=== PATIENT | male | born 1990 | race Asian ===

== ENCOUNTER → 2017-03-30 | Outpatient (CLI) | payer BC | LOC: FIMAGING 15:05 | PROVIDERS: ATTEND Family Medicine | DX: R91.8 Other nonspecific abnormal finding of lung field (principal); Z87.09 Personal history of other diseases of the respiratory system ==

== ENCOUNTER → 2018-06-13 | Outpatient (CLI) | payer BC | LOC: BMCIMAGING 17:34 | PROVIDERS: ATTEND Family Medicine | DX: R07.9 Chest pain, unspecified (principal) ==